=== PATIENT | female | born 1995 | race Caucasian/White ===

== ENCOUNTER 2023-05-19 10:23 | Emergency (ER) | payer OTHER, SELFPAY ==
[2023-05-19 10:43] VITALS: BP 130/91; PULSE 88; RESP 16; TEMP 37.1; O2SAT 99
--- NOTE | 2023-05-19 10:50 | ED.URI ---
HPI - URI/Sore Throat General Chief Complaint: Upper Respiratory Infection Stated Complaint: sore throat Time Seen by Provider: 05/19/23 10:50 Source: patient Mode of arrival: ambulatory Limitations: no limitations History of Present Illness HPI Narrative: 27-year-old female presents with complaint of sore throat and headache for 5 days. Reports she was with her friend on a trip to [place] and her friend was recently diagnosed with strep throat. Denies nausea vomiting diarrhea. All systems reviewed and negative except as noted above. Related Data Home Medications Medication Instructions Recorded Confirmed escitalopram oxalate 10 mg tablet 10 mg PO DAILY 05/19/23 05/19/23 norgestimate-ethinyl estradiol 1 tablet PO DAILY 05/19/23 05/19/23 0.18 mg/0.215mg/0.25mg-35 mcg(28)tablet Allergies Allergy/AdvReac Type Severity Reaction Status Date / Time No Known Allergies Allergy Verified 05/19/23 10:55 Review of Systems Review of Systems: CONSTITUTIONAL: Denies fever, chills, or sweats. EYES: Denies visual changes, redness, or discharge. ENT: Denies rhinorrhea, congestion. Reports sore throat. Denies otalgia. CARDIOVASCULAR: Denies chest pain, palpitations, or edema. RESPIRATORY: Denies cough or dyspnea. GASTROINTESTINAL: Denies abdominal pain, nausea, vomiting, or diarrhea. GENITOURINARY: Denies dysuria or hematuria. SKIN: Denies rash or itching. MUSCULOSKELETAL: Denies back pain, joint pain, or myalgia. NEUROLOGIC: Reports headache. Denies numbness, or weakness. PSYCHIATRIC: Denies anxiety or depression. All other systems reviewed are negative, except as documented in HPI. PMFSH Comments At time of signature, agree with nursing past medical, surgical, social and family history. There is no relevant family history pertinent to the presenting complaint. Exam Narrative: GENERAL: This is a well-nourished, well-developed patient, in no apparent distress. HEAD: normocephalic, atraumatic. EYES: PERRL. Sclera clear/white. Vision is grossly intact. EARS: External ears normal, auditory canals clear and without drainage, TMs normal without perforation. Hearing grossly intact. NOSE: External nose normal with no obvious nasal discharge, nares without redness, no rhinorrhea. THROAT: Mucous membranes moist, erythema and swelling posterior pharynx without exudates. NECK: Neck supple, non-tender without lymphadenopathy, masses or thyromegaly. CARDIOVASCULAR: Regular rate and rhythm without murmurs, gallops, or rubs. RESPIRATORY: Clear to auscultation. Breath sounds equal bilaterally. No wheezes, rales, or rhonchi. SKIN: warm, Dry, intact with no suspicious lesions or rash, good texture and turgor. NEURO: awake, alert, and oriented to person, place and time. There were no obvious focal neurologic abnormalities. EXTREMITIES: No joint tenderness, effusion, or edema noted. Course Course Level of Care: Express Care Visit Vital Signs Vital signs: Vital Signs Temperature 37.1 C 05/19/23 10:43 Pulse Rate 88 05/19/23 10:43 Respiratory Rate 16 05/19/23 10:43 Blood Pressure 130/91 H 05/19/23 10:43 Pulse Oximetry 99 05/19/23 10:43 Oxygen Delivery Room Air 05/19/23 10:43 Temperature 37.1 C 05/19/23 10:43 Pulse Rate 88 05/19/23 10:43 Respiratory Rate 16 05/19/23 10:43 Blood Pressure 130/91 H 05/19/23 10:43 Pulse Oximetry 99 05/19/23 10:43 Oxygen Delivery Room Air 05/19/23 10:43 Reviewed MDM - URI/Sore Throat MDM Narrative Medical decision making narrative: Patient is aware of diagnosis, understands and agrees to treatment plan. Anticipatory guidance given. Patient agrees to follow-up as directed and is aware of reasons to seek care at the emergency department. Portions of this record may have been created with voice recognition software Discharge Plan Discharge Clinical Impression: Strep throat Patient Disposition: Home, Self-Care Condition: St
== END 2023-05-19 11:05 | disposition home or self-care (01) ==
PROVIDERS: Emergency Provider Nurse Practitioner Family; PCP Nurse Practitioner
DX: J02.0 Streptococcal pharyngitis (principal); F41.9 Anxiety disorder, unspecified
CPT/HCPCS: 87880; 99213; G0463

== ENCOUNTER 2025-02-10 11:20 | Outpatient (CLI) | payer OTHER, SELFPAY ==
--- NOTE | ~2025-02-10 | US_ITS ---
EXAMINATION: US pelvic complete w TV DATE: 02/10/2025 11:47 INDICATION: Irregular intermenstrual bleeding. TECHNIQUE: Multiple transabdominal and endovaginal sonographic images of the pelvis were obtained. COMPARISON: None. FINDINGS: The uterus measures 7.3 x 2.6 x 3.0 cm. The endometrial complex measures 7 mm in thickness. 7 mm ane choic nabothian cyst at the cervix. Minimal fluid in the endocervical canal. The right ovary measures 2.6 x 2.1 x 2.4 cm. The left ovary measures 3.3 x 3.2 x 2.7 cm. 2.7 cm anechoic cyst versus dominant follicle in the left ovary and 1.2 cm follicle in the right ovary. There is normal vascular flow in the ovaries. There is no free fluid in the pelvis. Bladder is normal. IMPRESSION: 1. Subcentimeter nabothian cysts the cervix and small cysts/follicles at the ovaries. Reviewed, dictated and finalized at location B. IMPRESSION: 1. Subcentimeter nabothian cysts the cervix and small cysts/follicles at the ov faviola.
== END 2025-02-10 11:21 | disposition home or self-care (01) ==
LOC: MICIMG 11:21
PROVIDERS: PCP Nurse Practitioner; Visit Provider Nurse Practitioner
DX: N88.8 Other specified noninflammatory disorders of cervix uteri (principal); N83.02 Follicular cyst of left ovary; N83.01 Follicular cyst of right ovary; N92.1 Excessive and frequent menstruation with irregular cycle
CPT/HCPCS: 76830; 76856